=== PATIENT | female | born 1950 | race Caucasian/White ===

== ENCOUNTER → 2018-12-06 | Outpatient (CLI) | payer MEDICARE ==
[~2018-12-06] MED LIST: ALEN70 PO; ANAS1 PO; ATOR40TA PO; Aspir 8181 MG PO; Buspirone HCl30 MG PO; CALCIUM 1,0001 EACH PO; EUTHYROX75 MCG PO; FLUOXETINE HCL60 MG PO; Humalog100 UNIT/1 SC; INSULANPEN SC; LAMO100 PO; LISI5 PO; MAGNESIUM OXID500 MG PO; Mirtazapine45 M1 PO; VITAMIN D325 GM PO
[2018-12-06 18:03] LABS: Creatinine, Urine Random 48.2 mg/dL (27.00-270.00)
[2018-12-06 18:05] LABS: Microalb/Creat Ratio UR, Rand 16.971 mg/g (0.000-30.000); Microalbumin, Random Urine 8.18 mg/L (0.000-20.000)
== END ==
LOC: LAB SHORT 12:04 → LAB SRC 12:04
PROVIDERS: Nurse Practitioner Family
DX: E10.65 Type 1 diabetes mellitus with hyperglycemia (principal)
CPT/HCPCS: 82043; 82570

== ENCOUNTER 2018-12-11 08:04 | Day surgery (SDC) | payer MEDICARE ==
[~2018-12-11] VITALS: Ht 170.2 cm; Wt 124.6 kg
[~2018-12-11 08:04] MED LIST changes: -LISI5 PO
[2018-12-11] MEDS ORDERED: LISI5 PO (09:00)
--- NOTE | 2018-12-11 09:04 | NUR ---
12/11/18 0904 Jacinda Lyle 1ST IV ATTEMPT IN RFA UNSUCCESSFUL, STARTED BY DILLAN PILLAI 2ND IV ATTEMPT IN RFA UNSUCCESSFUL, STARTED BY DILLAN PILLAI 3RD IV ATTEMPT IN RFA SUCCESSFUL, 20G IV PLACED, STARTED BY DILLAN PILLAI
== END 2018-12-11 23:59 | disposition home or self-care (01) ==
LOC: ORSCSDS 08:04
PROVIDERS: Internal Medicine Gastroenterology
PROC: 0DBN8ZX Excision of Sigmoid Colon, Via Natural or Artificial Opening Endoscopic, Diagnostic (ICD-10-PCS; principal; 2018-12-11 09:15)
DX: K92.1 Melena (principal); D12.5 Benign neoplasm of sigmoid colon; K64.8 Other hemorrhoids; Z80.0 Family history of malignant neoplasm of digestive organs; E10.8 Type 1 diabetes mellitus with unspecified complications; Z79.4 Long term (current) use of insulin; Z87.891 Personal history of nicotine dependence; Z79.82 Long term (current) use of aspirin; Z79.899 Other long term (current) drug therapy
CPT/HCPCS: 82947; 88305; J2704; J7120

== ENCOUNTER → 2018-12-25 | Outpatient (CLI) | payer MEDICARE ==
[~2018-12-25] MED LIST changes: +LISI5 PO
== END | disposition home or self-care (01) ==
LOC: LAB SHORT 10:15 → LAB SRC 10:15
DX: R31.9 Hematuria, unspecified (principal)
CPT/HCPCS: 87086

== ENCOUNTER 2019-06-03 12:51 | Inpatient (IN) | payer MEDICARE ==
[~2019-06-03] VITALS: Ht 170.2 cm; Wt 53.3 kg
[~2019-06-03 12:51] MED LIST changes: -ALEN70 PO; -ANAS1 PO; -ATOR40TA PO; -Aspir 8181 MG PO; -Buspirone HCl30 MG PO; -CALCIUM 1,0001 EACH PO; -EUTHYROX75 MCG PO; -FLUOXETINE HCL60 MG PO; -Humalog100 UNIT/1 SC; -INSULANPEN SC; -LISI5 PO; -MAGNESIUM OXID500 MG PO; -Mirtazapine45 M1 PO; -VITAMIN D325 GM PO
[2019-06-03 13:32] LABS: BASOPHILS ABSOLUTE AUTO 0.04 K/mm3 (0.00-0.23); BASOPHILS PERCENT AUTO 0 % (0-2); EOSINOPHILS PERCENT AUTO 0 % (0-6); Hematocrit 39.5 % (33.0-51.0); Hemoglobin 12.7 g/dL (11.5-16.0); IMMATURE GRAN ABSOLUTE AUTO 0.17 K/mm3 (0.00-0.10); IMMATURE GRAN PERCENT AUTO 2 % (0-1); LYMPHOCYTES ABSOLUTE AUTO 0.46 K/mm3 (0.84-5.20); LYMPHOCYTES PERCENT AUTO 4 % (21-46); MONOCYTES ABSOLUTE AUTO 0.47 K/mm3 (0.16-1.47); MONOCYTES PERCENT AUTO 4 % (4-13); Mean Corpuscular HGB 30.5 pg (26.0-34.0); Mean Corpuscular HGB Conc 32.2 g/dL (31.5-36.5); Mean Corpuscular Volume 95 fL (80-100); NEUTROPHILS ABSOLUTE AUTO 10.16 K/mm3 (1.96-9.15); NEUTROPHILS PERCENT AUTO 90 % (41-73); Platelet Count 182 K/mm3 (150-400); RDW Coefficient Variation 13.4 % (11.7-14.2); RDW Standard Deviation 47.2 fL (35.1-46.3); Red Blood Cell Count 4.17 M/mm3 (3.80-5.20)
[2019-06-03 13:46] LABS: Alanine Aminotransfer (ALT/SGP 23 U/L (12-78); Albumin, Blood 4.1 g/dL (3.4-5.0); Albumin/Globulin Ratio 1.3 (0.8-1.8); Alk Phos 128 U/L (50-136); Anion Gap 20 mmol/L (6-16); Aspartate Aminotrans (AST/SGOT 27 U/L (12-37); Bilirubin, Total 0.9 mg/dL (0.1-1.0); Blood Urea Nitrogen 31 mg/dL (8-24); CO2, Blood 17 mmol/L (21-32); Calcium, Blood 9.5 mg/dL (8.5-10.1); Chloride, Blood 95 mmol/L (98-108); Creatinine, Blood 0.94 mg/dL (0.40-1.00); Globulin, Blood 3.2 g/dL (2.2-4.0); Glomerular Filtration Rate >60 (60-); Glucose, Blood 514 mg/dL (70-99); Potassium, Blood 4.2 mmol/L (3.5-5.5); Sodium, Blood 132 mmol/L (136-145); Total Protein, Blood 7.3 g/dL (6.4-8.2)
[2019-06-03] MEDS ORDERED: INSULANPEN SC ×2 (14:04→14:05)
[2019-06-03] MEDS ORDERED: Buspirone HCl30 MG PO (14:04)
[2019-06-03] MEDS ORDERED: EUTHYROX125 MCG PO (14:04)
[2019-06-03] MEDS ORDERED: Humalog100 UNIT/1 SC (14:06)
[2019-06-03] MEDS ORDERED: ATOR40TA PO (14:08)
[2019-06-03] MEDS ORDERED: ANAS1 PO (14:11)
[2019-06-03] MEDS ORDERED: ALEN70 PO (14:11)
[2019-06-03] MEDS ORDERED: Aspir 8181 MG PO (14:11)
[2019-06-03] MEDS ORDERED: Lisinopril2.5 MG PO (14:11)
[2019-06-03] MEDS ORDERED: CALCIUM 1,0001 EACH PO (14:13)
[2019-06-03] MEDS ORDERED: VITAMIN D325 MCG PO (14:13)
[2019-06-03] MEDS ORDERED: MAGNESIUM OXID500 MG PO (14:13)
[2019-06-03 14:40] LABS: Source, Urine Clean Catch
[2019-06-03] MEDS ORDERED: MIRT15 PO (14:43)
[2019-06-03] MEDS ORDERED: FLUOXETINE HCL60 MG PO (14:43)
[2019-06-03 14:44] LABS: Bilirubin, Urine Neg (Neg); Blood, Urine 1+ (Neg); Glucose Qualitative, Urine 4+ (Neg); Ketones, Urine 4+ (Neg); Leukocyte Esterase, Urine Neg (Neg); Nitrite, Urine Neg (Neg); Protein, Urine Neg (Neg); Specific Gravity, Urine 1.015 (1.003-1.022); Urobilinogen, Urine NORM (Normal)
[2019-06-03 15:02] LABS: Appearance, Urine Clear (Clear); Color, Urine Pale Yellow (P-Yellow)
[2019-06-03 15:03] LABS: Bacteria Few /hpf; Squamous Epithelial Cells Not Seen /hpf (Few); White Blood Cells, Urine 0-2 /hpf (0-5)
[2019-06-03 18:00] LABS: Anion Gap 8 mmol/L (6-16); Blood Urea Nitrogen 25 mg/dL (8-24); CO2, Blood 20 mmol/L (21-32); Calcium, Blood 8.2 mg/dL (8.5-10.1); Chloride, Blood 106 mmol/L (98-108); Glomerular Filtration Rate >60 (60-); Glucose, Blood 172 mg/dL (70-99); Potassium, Blood 3.6 mmol/L (3.5-5.5); Sodium, Blood 134 mmol/L (136-145)
[2019-06-03 21:12] LABS: Anion Gap 7 mmol/L (6-16); Blood Urea Nitrogen 25 mg/dL (8-24); Bun/Creatinine Ratio 30.5 (12.0-20.0); CO2, Blood 26 mmol/L (21-32); Calcium, Blood 8.3 mg/dL (8.5-10.1); Chloride, Blood 102 mmol/L (98-108); Creatinine, Blood 0.82 mg/dL (0.40-1.00); Glomerular Filtration Rate >60 (60-); Glucose, Blood 236 mg/dL (70-99); Potassium, Blood 3.9 mmol/L (3.5-5.5); Sodium, Blood 135 mmol/L (136-145)
--- NOTE | 2019-06-03 21:12 | NUR ---
RECEIVED HAND OFF FROM DILLAN EVANS IN ER. TRANSPORTED TO ROOM VIA WHEELCHAIR. TRANSFERED SELF TO BED WITH STANDBY ASSIST, TOLERATED WELL. AAO X3, FIGUEROA, VSS, NAD NOTED, FOLLOWS ALL COMMANDS. ORIENTED TO ROOM, CALL SYSTEM, AND POC, VOICES UNDERSTANDING. TELE PER MD ORDERS, NSR AT 75. RIGHT WRIST 20G FIELD START PIV IS PATENT, FLUSHING WITH EASE WHILE INFUSING. D5LR AT 125ML/HR. ABDOMEN SOFT AND NONDISTENDED. BOWEL SOUNDS PRESENT IN ALL QUADS. CONTINENT OF BOWEL AND BLADDER, AMBULATES TO BATHROOM. SCD'S TO BLE PER ORDERS. CBG'S ORDERED Q 2HRS X2, IF STABLE THEN CHANGE TO Q AC. HS MEDS GIVEN PER ORDERS. DENIES FURTHER NEEDS OR WANTS AT THIS TIME. SAFETY MEASURES IN PLACE. ADMISSION ASSESSMENT IN PROGRESS. WILL CONTINUE TO MONITOR.
[2019-06-04 05:04] LABS: BASOPHILS ABSOLUTE AUTO 0.03 K/mm3 (0.00-0.23); BASOPHILS PERCENT AUTO 0 % (0-2); EOSINOPHILS ABSOLUTE AUTO 0.01 K/mm3 (0.00-0.68); EOSINOPHILS PERCENT AUTO 0 % (0-6); Hematocrit 36.8 % (33.0-51.0); Hemoglobin 11.9 g/dL (11.5-16.0); IMMATURE GRAN ABSOLUTE AUTO 0.08 K/mm3 (0.00-0.10); IMMATURE GRAN PERCENT AUTO 1 % (0-1); LYMPHOCYTES PERCENT AUTO 13 % (21-46); MONOCYTES PERCENT AUTO 11 % (4-13); Mean Corpuscular HGB 30.5 pg (26.0-34.0); Mean Corpuscular HGB Conc 32.3 g/dL (31.5-36.5); Mean Corpuscular Volume 94 fL (80-100); NEUTROPHILS ABSOLUTE AUTO 7.35 K/mm3 (1.96-9.15); NEUTROPHILS PERCENT AUTO 75 % (41-73); Platelet Count 151 K/mm3 (150-400); RDW Coefficient Variation 13.5 % (11.7-14.2); RDW Standard Deviation 46.8 fL (35.1-46.3); White Blood Cell Count 9.87 K/mm3 (4.00-11.30)
--- NOTE | 2019-06-04 05:27 | NUR ---
SHIFT SUMMARY RESTING WITH EASE AT THIS TIME. RESPIRATIONS EVEN AND UNLABORED ON RA. HAS NO C/O PAIN THIS SHIFT. CONTINENT OF BOWEL AND BLADDER, AMBULATES TO BATHROOM. RIGHT WRIST PIV IS PATENT, FLUSIHING WITH EASE WHILE INFUSING D5LR AT 125ML/HR. DENIES FURTHER NEEDS OR WANTS AT THIS TIME. SAFETY MEASURES IN PLACE. WILL GIVE HAND OFF TO ONCOMING SHIFT USING SBAR.
[2019-06-04 05:28] LABS: Alanine Aminotransfer (ALT/SGP 16 U/L (12-78); Albumin/Globulin Ratio 1.1 (0.8-1.8); Alk Phos 82 U/L (50-136); Anion Gap 3 mmol/L (6-16); Aspartate Aminotrans (AST/SGOT 20 U/L (12-37); Bilirubin, Total 0.6 mg/dL (0.1-1.0); Blood Urea Nitrogen 23 mg/dL (8-24); Bun/Creatinine Ratio 28.7 (12.0-20.0); CO2, Blood 28 mmol/L (21-32); Calcium, Blood 8.7 mg/dL (8.5-10.1); Chloride, Blood 104 mmol/L (98-108); Globulin, Blood 2.7 g/dL (2.2-4.0); Glomerular Filtration Rate >60 (60-); Glucose, Blood 329 mg/dL (70-99); Potassium, Blood 3.7 mmol/L (3.5-5.5); Sodium, Blood 135 mmol/L (136-145); Total Protein, Blood 5.7 g/dL (6.4-8.2)
--- NOTE | 2019-06-04 19:24 | NUR ---
summary PATIENT REPORTS SLIGHT FRONTAL HEADACHE BUT DECLINES OFFER OF PAIN MEDS OR ICE. PT DECLINED LOVENOX INJECTION=PT WAS VERBALLY EDUCATED ON DVT PREVENTION AND AGAIN DECLINES LOVENOX- STATES SHE HAS BEEN SITTING IN CHAIR AND WALKING IN ROOM. SPOKE WITH DR RUSSO THROUGHOUT SHIFT REGARDING PATIENTS BLOOD SUGAR AND NEW ORDERS RECEIVED
--- NOTE | 2019-06-05 08:00 | NUR ---
SHIFT SUMMARY: SHRADDHA RESTED COMFORTABLY FOR SEVERAL HOURS DURING THE NIGHT. HER HS BLOOD SUGAR WAS 100. SHE DID HAVE A HIGH PROTEIN SNACK AT HS. A&OX4. SHE IS TOLERATING PO INTAKE WELL. SHE IS INDEPENDENT IN THE ROOM. SHE IS HOPING TO GO HOME TODAY. SHE IS LYING COMFORTABLY IN BED WITH HER CALL LIGHT IN REACH. REPORT TO DAY SHIFT RN.
--- NOTE | 2019-06-06 05:42 | NUR ---
SHIFT SUMMARY: SHRADDHA RESTED COMFORTABLY THE MAJORITY OF THE SHIFT. BP ELEVATED, READINGS TAKEN IN BOTH ARMS WITH UNEQUAL RESULTS. A&OX4. INDEPENDENT IN THE ROOM. IV SALINE LOCKED. SHE REPORTS THAT SHE USUALLY HAS A MONITOR BUT THAT THE TRANSMITTER IS FAULTY AND MEDICARE WILL NOT COVER A NEW ONE UNTIL JULY. SHE STATES THAT SHE THINKS THAT IS THE REASON HER SUGARS BECAME OUT OF CONTROL. SHE DOES HAVE A FINGERSTICK METHOD TO CHECK HER SUGARS. SHE IS ANXIOUS TO GO HOME. SHE IS LYING COMFORTABLY IN BED WITH HER CALL LIGHT IN REACH. WILL REPORT TO DAY SHIFT RN.
[2019-06-06] MEDS ORDERED: BASAGLAR K100 UNIT/1 SC (10:54)
[2019-06-06] MEDS ORDERED: Humalog Mi100 UNIT/4 SC (10:57)
[2019-06-06] MEDS ORDERED: Prinivil10 MG PO (10:58)
--- NOTE | 2019-06-06 11:29 | NUR ---
1120 DISCHARGED TO HOME
== END 2019-06-06 11:30 | disposition home or self-care (01) | DRG 639 ==
LOC: ER 12:51 → ERHOLD 12:53 → SURS 20:00
PROVIDERS: Emergency Medicine; Nurse Practitioner Acute Care; Physician Assistant; ADMIT Internal Medicine
DX: E11.10 Type 2 diabetes mellitus with ketoacidosis without coma (principal); F41.1 Generalized anxiety disorder; E03.9 Hypothyroidism, unspecified; E86.0 Dehydration; E78.5 Hyperlipidemia, unspecified; M81.0 Age-related osteoporosis without current pathological fracture; F32.9 Major depressive disorder, single episode, unspecified; F17.210 Nicotine dependence, cigarettes, uncomplicated; Z85.3 Personal history of malignant neoplasm of breast; Z79.811 Long term (current) use of aromatase inhibitors; Z79.82 Long term (current) use of aspirin; Z79.4 Long term (current) use of insulin; Z79.899 Other long term (current) drug therapy
CPT/HCPCS: 36415; 71045; 80048; 80053; 81001; 82010; 82947; 83735; 85025; 96360; 99285-25; A9270; A9270-GY; J1650; J1815; J2765; J7030; J7120

== ENCOUNTER → 2021-03-01 | Outpatient (CLI) | payer OTHER ==
[~2021-03-01] MED LIST changes: +ALEN70 PO; +ANAS1 PO; +ANASTROZOLE5 GM PO; +ATOR40TA PO; +Aspir 8181 MG PO; +Aspirin EC81 MG PO; +BASAGLAR K100 UNIT/1 SC; +Buspirone HCl30 MG PO; +CALCIUM 1,0001 EACH PO; +CALCIUM 600 +1 EAC8 PO; +EUTHYROX125 MCG PO; +FLUOXETINE HCL60 MG PO; +HUMALOG KW100 UNIT/1; +Humalog Mi100 UNIT/4 SC; +Humalog100 UNIT/1 SC; +INSULANPEN SC; +LEVSOD75 PO; +Lisinopril2.5 MG PO; +MAGNESIUM OXID500 MG PO; +MIRT15 PO; +Mirtazapine45 M1 PO; +Prinivil10 MG PO; +Prozac20 MG PO; +VITAMIN D325 MC3 PO; +VITAMIN D325 MCG PO
[2021-03-01 13:45] LABS: BASOPHILS ABSOLUTE AUTO 0.06 K/mm3 (0.00-0.23); BASOPHILS PERCENT AUTO 1 % (0-2); EOSINOPHILS ABSOLUTE AUTO 0.02 K/mm3 (0.00-0.68); EOSINOPHILS PERCENT AUTO 0 % (0-6); Hematocrit 40.2 % (33.0-51.0); Hemoglobin 13.5 g/dL (11.5-16.0); IMMATURE GRAN ABSOLUTE AUTO 0.04 K/mm3 (0.00-0.10); IMMATURE GRAN PERCENT AUTO 1 % (0-1); LYMPHOCYTES ABSOLUTE AUTO 1.45 K/mm3 (0.84-5.20); LYMPHOCYTES PERCENT AUTO 18 % (21-46); MONOCYTES ABSOLUTE AUTO 0.74 K/mm3 (0.16-1.47); MONOCYTES PERCENT AUTO 9 % (4-13); Mean Corpuscular HGB 33.8 pg (26.0-34.0); Mean Corpuscular HGB Conc 33.6 g/dL (31.5-36.5); Mean Corpuscular Volume 101 fL (80-100); Mean Platelet Volume 10.8 fL (9.1-12.4); NEUTROPHILS PERCENT AUTO 72 % (41-73); Platelet Count 206 K/mm3 (150-400); RDW Coefficient Variation 12.1 % (11.7-14.2); RDW Standard Deviation 45.4 fL (35.1-46.3); White Blood Cell Count 8.21 K/mm3 (4.00-11.30)
[2021-03-01 14:10] LABS: Alanine Aminotransfer (ALT/SGP 61 U/L (12-78); Albumin, Blood 3.2 g/dL (3.4-5.0); Albumin/Globulin Ratio 0.9 (0.8-1.8); Alk Phos 151 U/L (50-136); Anion Gap 13 mmol/L (6-16); Aspartate Aminotrans (AST/SGOT 102 U/L (12-37); Bilirubin, Total 0.6 mg/dL (0.1-1.0); Blood Urea Nitrogen 5 mg/dL (8-24); Bun/Creatinine Ratio 6.8 (12.0-20.0); CO2, Blood 21 mmol/L (21-32); Calcium, Blood 9.5 mg/dL (8.5-10.1); Chloride, Blood 101 mmol/L (98-108); Creatinine, Blood 0.74 mg/dL (0.40-1.00); Free Thyroxine 0.94 ng/dL (0.70-1.60); Globulin, Blood 3.6 g/dL (2.2-4.0); Glomerular Filtration Rate >60 (60-); Glucose, Blood 156 mg/dL (70-99); Potassium, Blood 3.8 mmol/L (3.5-5.5); Sodium, Blood 135 mmol/L (136-145); Total Protein, Blood 6.8 g/dL (6.4-8.2)
== END ==
LOC: LAB 10:14 → LAB SHORT 10:14
PROVIDERS: Family Medicine
DX: E03.9 Hypothyroidism, unspecified (principal); E11.9 Type 2 diabetes mellitus without complications; K52.9 Noninfective gastroenteritis and colitis, unspecified
CPT/HCPCS: 80053; 83036; 84439; 84443; 84481; 85025

== ENCOUNTER → 2021-08-18 | Outpatient (CLI) | payer OTHER | END | disposition home or self-care (01) | LOC: LAB SHORT 11:35 | DX: E10.9 Type 1 diabetes mellitus without complications (principal) | CPT/HCPCS: 82043 ==

== ENCOUNTER 2022-05-09 10:33 | Inpatient (IN) | payer OTHER ==
[~2022-05-09] VITALS: Ht 152.4 cm; Wt 50.0 kg
[~2022-05-09 10:33] MED LIST changes: +MIRALAX17 GM PO; +PAIN RELIEF1 EACH TOP; +SEMGLEE (Y100 UNIT/2 SC; +TRAM50 PO
[2022-05-09 10:53] LABS: BASOPHILS ABSOLUTE AUTO 0.08 K/mm3 (0.00-0.23); BASOPHILS PERCENT AUTO 0 % (0-2); EOSINOPHILS ABSOLUTE AUTO 0.01 K/mm3 (0.00-0.68); EOSINOPHILS PERCENT AUTO 0 % (0-6); Hematocrit 36.9 % (33.0-51.0); Hemoglobin 12.3 g/dL (11.5-16.0); IMMATURE GRAN ABSOLUTE AUTO 0.47 K/mm3 (0.00-0.10); IMMATURE GRAN PERCENT AUTO 2 % (0-1); LYMPHOCYTES ABSOLUTE AUTO 0.57 K/mm3 (0.84-5.20); LYMPHOCYTES PERCENT AUTO 3 % (21-46); MONOCYTES ABSOLUTE AUTO 1.27 K/mm3 (0.16-1.47); MONOCYTES PERCENT AUTO 6 % (4-13); Mean Corpuscular HGB 31.1 pg (26.0-34.0); Mean Corpuscular HGB Conc 33.3 g/dL (31.5-36.5); Mean Corpuscular Volume 93 fL (80-100); Mean Platelet Volume 9.5 fL (9.1-12.4); NEUTROPHILS ABSOLUTE AUTO 20.01 K/mm3 (1.96-9.15); NEUTROPHILS PERCENT AUTO 89 % (41-73); Platelet Count 190 K/mm3 (150-400); RDW Coefficient Variation 12.8 % (11.7-14.2); RDW Standard Deviation 44.2 fL (35.1-46.3); Red Blood Cell Count 3.96 M/mm3 (3.80-5.20); White Blood Cell Count 22.41 K/mm3 (4.00-11.30)
[2022-05-09 11:13] LABS: Albumin, Blood 3.6 g/dL (3.4-5.0); Bun/Creatinine Ratio 27.4 (12.0-20.0); Calcium, Blood 9.1 mg/dL (8.5-10.1); Creatinine, Blood 0.77 mg/dL (0.40-1.00); Globulin, Blood 3.6 g/dL (2.2-4.0); Potassium, Blood 4.2 mmol/L (3.5-5.5); Total Protein, Blood 7.2 g/dL (6.4-8.2)
[2022-05-09 11:19] LABS: Magnesium, Blood 1.7 mg/dL (1.6-2.4)
[2022-05-09 13:49] LABS: Source, Urine Voided
[2022-05-09 14:12] LABS: Appearance, Urine Clear (Clear); Bilirubin, Urine Neg (Neg); Blood, Urine 1+ (Neg); Color, Urine Yellow (P-Yellow); Glucose Qualitative, Urine 4+ (Neg); Ketones, Urine 4+ (Neg); Leukocyte Esterase, Urine Neg (Neg); Nitrite, Urine Neg (Neg); Protein, Urine 2+ (Neg); Specific Gravity, Urine 1.015 (1.003-1.022); Urobilinogen, Urine NORM (Normal)
[2022-05-09 14:33] LABS: White Blood Cells, Urine 0-2 /hpf (0-5)
[2022-05-09 14:35] LABS: Bacteria Rare /hpf; Squamous Epithelial Cells Few /hpf (Few)
--- NOTE | 2022-05-09 18:32 | NUR ---
NEW ER ADMIT Pt has new onset of N/V, WEAKNESS. Last night had GLF, increased weakness today, unable to walk. 2-RN skin check completed, small scab on right knee, no other skin issues found. Bedrest at this time. Pt has N/V, dry heaving. Temp 100.5 on admission, vitals stable. CBG High undetectable, start Glucose/Blood ordered, results pending. MD notified. Patient is NPO until CBG results come back.
[2022-05-09 18:49] LABS: Glucose, Blood 651 mg/dL (70-99)
--- NOTE | 2022-05-09 19:10 | NUR ---
Blood Glucose is 651, reported to Dr. Grey. Orders to given Lantus 20 units Now. CHange Humalog to High SSI ac/hs, and infuse 1L Normal Saline, recheck CBG in 1 hour. Patient warm/flushed, reported feeling unwell, and nausated. Reported plan to oncoming nurse, interventions initiated.
[2022-05-09 21:23] LABS: Glucose, Blood 589 mg/dL (70-99)
[2022-05-10 05:27] LABS: BASOPHILS ABSOLUTE AUTO 0.05 K/mm3 (0.00-0.23); BASOPHILS PERCENT AUTO 0 % (0-2); EOSINOPHILS PERCENT AUTO 0 % (0-6); Hematocrit 32.2 % (33.0-51.0); Hemoglobin 10.7 g/dL (11.5-16.0); IMMATURE GRAN ABSOLUTE AUTO 0.23 K/mm3 (0.00-0.10); IMMATURE GRAN PERCENT AUTO 1 % (0-1); LYMPHOCYTES ABSOLUTE AUTO 1.32 K/mm3 (0.84-5.20); LYMPHOCYTES PERCENT AUTO 7 % (21-46); MONOCYTES ABSOLUTE AUTO 2.07 K/mm3 (0.16-1.47); MONOCYTES PERCENT AUTO 12 % (4-13); Mean Corpuscular HGB 30.7 pg (26.0-34.0); Mean Corpuscular HGB Conc 33.2 g/dL (31.5-36.5); Mean Corpuscular Volume 93 fL (80-100); Mean Platelet Volume 9.6 fL (9.1-12.4); NEUTROPHILS ABSOLUTE AUTO 14.26 K/mm3 (1.96-9.15); NEUTROPHILS PERCENT AUTO 80 % (41-73); Platelet Count 183 K/mm3 (150-400); RDW Coefficient Variation 13.2 % (11.7-14.2); RDW Standard Deviation 44.3 fL (35.1-46.3); Red Blood Cell Count 3.48 M/mm3 (3.80-5.20); White Blood Cell Count 17.93 K/mm3 (4.00-11.30)
--- NOTE | 2022-05-10 05:38 | NUR ---
SUMMARY: PATIENT GLUCOSE ELEVATED AT 651 START OF SHIFT. ORDERS RECIEVED FOR NS 1L AND INSULIN. MEDS GIVEN AND SUGAR RECHECKED ONE HOUR LATER. GLUCOSE STILL ELEVATED 589. ADDITIONAL 8U LISPRO GIVEN AND GLUCOSE CHECKED 2 HOURS LATER CAME DOWN TO 295. GLUCOSE CHECKED ONE HOUR LATER 275. IV FLUIDS RUNNING. NAUSEA MEDS GIVEN PRN. PATIENT HAS FRACTURES INCLUDING HIP AND RIBS FROM FALLS. PURE WIC IN PLACE CURRENTLY. CALL LIGHT IN REACH, BED ALARM ON. PATIENT VSS. AOX4.
[2022-05-10 05:42] LABS: Albumin/Globulin Ratio 0.9 (0.8-1.8); Bilirubin, Total 0.7 mg/dL (0.1-1.0); Bun/Creatinine Ratio 29.8 (12.0-20.0); Calcium, Blood 8.6 mg/dL (8.5-10.1); Creatinine, Blood 0.91 mg/dL (0.40-1.00); Globulin, Blood 3.2 g/dL (2.2-4.0); Magnesium, Blood 2.3 mg/dL (1.6-2.4); Potassium, Blood 3.8 mmol/L (3.5-5.5); Total Protein, Blood 6.2 g/dL (6.4-8.2)
--- NOTE | 2022-05-10 18:19 | NUR ---
SHIFT SUMMARY-PT AAOX4 THIS SHIFT. PAIN MODERATELY CONTROLLED BY FENTYNAL IV. PT HAS NOT HAD A BM IN 48 HRS.
--- NOTE | 2022-05-11 05:35 | NUR ---
SUMMARY: PATIENT AOX4. PURE WIC IN PLACE PATIENT IS VERY WEAK AND IN PAIN FROM FRACTURES. PAIN MEDS AND ANTIEMETICS GIVEN PER EMAR. IV ABX GIVEN. BP ELEVATED THIS AM. NOTIFIED MD. STOPPED FLUIDS PATIENT IS TOLERATING CLEAR LIQUID WITH VERY GOOOD URINE OUTPUT AND GAVE DAILY BP MED EARLY. PLAN FOR PATIENT TO DC TO [facility] ONCE MEDICALLY CLEARED.
[2022-05-11 06:09] LABS: BASOPHILS ABSOLUTE AUTO 0.04 K/mm3 (0.00-0.23); BASOPHILS PERCENT AUTO 0 % (0-2); EOSINOPHILS ABSOLUTE AUTO 0.04 K/mm3 (0.00-0.68); EOSINOPHILS PERCENT AUTO 0 % (0-6); Hematocrit 33.4 % (33.0-51.0); Hemoglobin 11.4 g/dL (11.5-16.0); IMMATURE GRAN ABSOLUTE AUTO 0.13 K/mm3 (0.00-0.10); IMMATURE GRAN PERCENT AUTO 1 % (0-1); LYMPHOCYTES ABSOLUTE AUTO 1.14 K/mm3 (0.84-5.20); LYMPHOCYTES PERCENT AUTO 12 % (21-46); MONOCYTES PERCENT AUTO 10 % (4-13); Mean Corpuscular HGB 31.1 pg (26.0-34.0); Mean Corpuscular HGB Conc 34.1 g/dL (31.5-36.5); Mean Corpuscular Volume 91 fL (80-100); Mean Platelet Volume 9.7 fL (9.1-12.4); NEUTROPHILS ABSOLUTE AUTO 7.24 K/mm3 (1.96-9.15); NEUTROPHILS PERCENT AUTO 76 % (41-73); Platelet Count 121 K/mm3 (150-400); RDW Coefficient Variation 13.1 % (11.7-14.2); RDW Standard Deviation 43.6 fL (35.1-46.3); Red Blood Cell Count 3.67 M/mm3 (3.80-5.20); White Blood Cell Count 9.49 K/mm3 (4.00-11.30)
[2022-05-11 06:15] LABS: Bun/Creatinine Ratio 17.4 (12.0-20.0); Calcium, Blood 8.8 mg/dL (8.5-10.1); Creatinine, Blood 0.58 mg/dL (0.40-1.00); Potassium, Blood 3.3 mmol/L (3.5-5.5)
[2022-05-11 11:40] LABS: Influenza A, PCR NEGATIVE (NEGATIVE); Influenza B, PCR NEGATIVE (NEGATIVE); Resp Syncytial Virus, PCR NEGATIVE (NEGATIVE); SARS-Cov-2 (COVID-19) PCR, MMC NEGATIVE (NEGATIVE)
[2022-05-11] MEDS ORDERED: PROM25 PO (12:06)
[2022-05-11] MEDS ORDERED: METR500 PO (12:06)
--- NOTE | 2022-05-11 17:43 | NUR ---
PROVIDER NOTIFIED OF 360 CBG. ORDERED 15 U REGULAR PER THE SLIDING SCALE. PROVIDER STATED SHE WILL ADJUST HER LONG ACTING INSULIN.
--- NOTE | 2022-05-11 18:17 | NUR ---
SHIFT SUMMARY PT AOX4. POTENTIALLY TRANSPORTING TO [facility] SOON. PT AMBULATING TO THE BS COMMODE WITH A FWW AND SBA. IV HAS BEEN REMOVED AND PAPERWORK FAXED TO [facility]. WILL REPORT TO ONCOMING NURSE.
--- NOTE | 2022-05-11 18:36 | NUR ---
SPOKE WITH JOSE RN, AT [facility] AND GAVE HIM REPORT ABOUT PT. TRANSPORT HAS STILL YET TO ARRIVE TO TRANSPORT HER. WILL REPORT TO ONCOMING NURSE.
== END 2022-05-11 19:50 | DRG 391 ==
LOC: ER 10:33 → MEDS 15:37
PROVIDERS: Emergency Medicine; Internal Medicine; Nurse Practitioner Acute Care; ADMIT Internal Medicine
DX: K52.9 Noninfective gastroenteritis and colitis, unspecified (principal); S72.114A Nondisplaced fracture of greater trochanter of right femur, initial encounter for closed fracture; E87.20 Acidosis, unspecified; E87.1 Hypo-osmolality and hyponatremia; F41.1 Generalized anxiety disorder; E03.9 Hypothyroidism, unspecified; R91.1 Solitary pulmonary nodule; F32.A Depression, unspecified; R29.6 Repeated falls; I10 Essential (primary) hypertension; M81.0 Age-related osteoporosis without current pathological fracture; G40.909 Epilepsy, unspecified, not intractable, without status epilepticus; E78.00 Pure hypercholesterolemia, unspecified; R94.31 Abnormal electrocardiogram [ECG] [EKG]; E86.1 Hypovolemia; E11.65 Type 2 diabetes mellitus with hyperglycemia; F17.210 Nicotine dependence, cigarettes, uncomplicated; E86.0 Dehydration; Z20.822 Contact with and (suspected) exposure to COVID-19; W19.XXXA Unspecified fall, initial encounter; Z90.49 Acquired absence of other specified parts of digestive tract; Z96.619 Presence of unspecified artificial shoulder joint; Z90.710 Acquired absence of both cervix and uterus; Z98.890 Other specified postprocedural states; Z98.49 Cataract extraction status, unspecified eye; Z90.12 Acquired absence of left breast and nipple; Z88.2 Allergy status to sulfonamides; Z88.1 Allergy status to other antibiotic agents; Z79.4 Long term (current) use of insulin; Z79.811 Long term (current) use of aromatase inhibitors; Z79.02 Long term (current) use of antithrombotics/antiplatelets; Z79.891 Long term (current) use of opiate analgesic; Z79.899 Other long term (current) drug therapy; Z79.82 Long term (current) use of aspirin; Z85.3 Personal history of malignant neoplasm of breast; Z71.6 Tobacco abuse counseling
CPT/HCPCS: 0241U; 36415; 71045; 73502; 74177; 80048; 80053; 81001; 82947; 83605; 83690; 83735; 84443; 84484; 85025; 93005; 93010; 96361; 96365-59; 96375; 97110; 97162; 97530; 99285-25; A9270; J0295; J1650; J1815; J1885; J2405; J2543; J2550; J2765; J3010; J3475; J7030; J7120; Q9967

== ENCOUNTER 2023-07-25 14:54 | Emergency (ER) | payer OTHER ==
[~2023-07-25] VITALS: Ht 170.2 cm; Wt 43.5 kg
[~2023-07-25 14:54] MED LIST changes: +METR500 PO; +PROM25 PO
[2023-07-25] MEDS ORDERED: OxyCODONE HCL 5 MG TAB PO ONE (15:55)
[2023-07-25] MEDS ORDERED: Ketorolac Tromethamine 30mg Vial IV ONE (15:55)
[2023-07-25] MEDS ORDERED: Lidocaine 4% 1 Patch TOP ONE (15:55)
[2023-07-25] MEDS ORDERED: NS 1,000 ML IV SCH (17:20)
[2023-07-25] MEDS ORDERED: Ondansetron HCl 2 MG / ML 2ML Vial IV ONE (17:20)
[2023-07-25] MEDS ORDERED: FentaNYL Citrate 50 MCG/ML 2 ML Injection IV ONE (17:20)
[2023-07-25] MEDS ORDERED: ONDA4ODT MM (17:27)
[2023-07-25] MEDS ORDERED: OXYC5 PO (17:27)
[2023-07-25] MEDS ORDERED: RX Prepack 2 Tabs Ondansetron ODT 4MG UD ONE (17:30)
[2023-07-25] MEDS ORDERED: RX Prepack 6 Tabs Oxycodone 5mg UD ONE (17:30)
[2023-07-25 19:21] VITALS: BP 121/71
== END 2023-07-25 19:59 ==
LOC: ER 14:54
DX: S22.42XA Multiple fractures of ribs, left side, initial encounter for closed fracture (principal); E86.0 Dehydration; R11.0 Nausea; F17.200 Nicotine dependence, unspecified, uncomplicated; E11.9 Type 2 diabetes mellitus without complications; I10 Essential (primary) hypertension; E78.00 Pure hypercholesterolemia, unspecified; Z79.82 Long term (current) use of aspirin; Z79.4 Long term (current) use of insulin; Z79.899 Other long term (current) drug therapy; Z88.1 Allergy status to other antibiotic agents; Z88.2 Allergy status to sulfonamides; W18.39XA Other fall on same level, initial encounter; Y92.009 Unspecified place in unspecified non-institutional (private) residence as the place of occurrence of the external cause
CPT/HCPCS: 71250; 93005; 93010; 96374; 96375; 99284-25; A9270; J1885; J2405; J3010; J7030

== ENCOUNTER 2023-08-05 08:37 | Inpatient (IN) | payer OTHER ==
[~2023-08-05] VITALS: Ht 170.2 cm; Wt 45.6 kg
[~2023-08-05 08:37] MED LIST changes: +ONDA4ODT MM; +OXYC5 PO
[2023-08-05] MEDS ORDERED: NS 1,000 ML IV SCH ×2 (09:45→14:00)
[2023-08-05] MEDS ORDERED: Ketorolac Tromethamine 30mg Vial IV ONE (09:45)
[2023-08-05] MEDS ORDERED: HYDROmorphone HCl/Pf 1MG SYR IV ONE ×2 (09:45→12:40)
[2023-08-05 09:48] LABS: BASOPHILS ABSOLUTE AUTO 0.05 K/mm3 (0.00-0.23); BASOPHILS PERCENT AUTO 0 % (0-2); EOSINOPHILS PERCENT AUTO 0 % (0-6); Hematocrit 33.9 % (33.0-51.0); Hemoglobin 11.4 g/dL (11.5-16.0); IMMATURE GRAN ABSOLUTE AUTO 0.22 K/mm3 (0.00-0.10); IMMATURE GRAN PERCENT AUTO 2 % (0-1); LYMPHOCYTES ABSOLUTE AUTO 1.16 K/mm3 (0.84-5.20); LYMPHOCYTES PERCENT AUTO 9 % (21-46); MONOCYTES PERCENT AUTO 6 % (4-13); Mean Corpuscular HGB 32.4 pg (26.0-34.0); Mean Corpuscular HGB Conc 33.6 g/dL (31.5-36.5); Mean Corpuscular Volume 96 fL (80-100); Mean Platelet Volume 9.6 fL (9.1-12.4); NEUTROPHILS ABSOLUTE AUTO 10.22 K/mm3 (1.96-9.15); NEUTROPHILS PERCENT AUTO 82 % (41-73); Platelet Count 236 K/mm3 (150-400); RDW Coefficient Variation 15.4 % (11.7-14.2); Red Blood Cell Count 3.52 M/mm3 (3.80-5.20); White Blood Cell Count 12.45 K/mm3 (4.00-11.30)
[2023-08-05] MEDS ORDERED: Ondansetron HCl 2 MG / ML 2ML Vial IV ONE (09:50)
[2023-08-05 10:04] LABS: Bilirubin, Total 0.6 mg/dL (0.1-1.0); Bun/Creatinine Ratio 15.8 (12.0-20.0); Calcium, Blood 8.9 mg/dL (8.5-10.1); Creatinine, Blood 1.01 mg/dL (0.40-1.00); Globulin, Blood 3.1 g/dL (2.2-4.0); Potassium, Blood 3.6 mmol/L (3.5-5.5); Total Protein, Blood 6.1 g/dL (6.4-8.2)
[2023-08-05 10:10] LABS: Source, Urine Straight Cath
[2023-08-05 10:13] LABS: Appearance, Urine Clear (Clear); Bilirubin, Urine Neg (Neg); Blood, Urine Neg (Neg); Color, Urine Yellow (P-Yellow); Glucose Qualitative, Urine Neg (Neg); Ketones, Urine 3+ (Neg); Leukocyte Esterase, Urine Neg (Neg); Nitrite, Urine Neg (Neg); Protein, Urine 1+ (Neg); Specific Gravity, Urine 1.015 (1.003-1.022); Urobilinogen, Urine NORM (Normal)
[2023-08-05] MEDS ORDERED: Azithromycin 250 MG Tab PO ONE (11:40)
[2023-08-05] MEDS ORDERED: CefTRIAXone Sodium 1,000 MG in NS 100 ML IV ONE (11:40)
[2023-08-05] MEDS ORDERED: Ondansetron HCl 2 MG / ML 2ML Vial IV PRN (12:55)
[2023-08-05] MEDS ORDERED: HYDROcodone 5-APAP 325 TAB PO PRN (13:00)
[2023-08-05] MEDS ORDERED: Promethazine HCl 25 MG Tab PO PRN (13:50)
[2023-08-05] MEDS ORDERED: Alendronate Sodium 70 MG Tablet PO SCH (13:50)
[2023-08-05] MEDS ORDERED: Insulin NPH 100 Unit / ML 10ML Vial SC STA (13:55)
[2023-08-05] MEDS ORDERED: FLUoxetine HCL 20 MG CAP PO SCH (14:00)
[2023-08-05 15:01] VITALS: BP 150/80
--- NOTE | 2023-08-05 15:30 | NUR ---
ASSUMED CARE: PT ARRIVED FROM ED AND TRANSFERRED TO BED VIA SLIDER. SKIN CHECK NOTED LARGE AMOUNTS OF BRUISING TO BACK AND LEFT SIDE OF RIBS AND HIP. HEMATOMA ALSO NOTED. BORDERS DRAWN AND PHOTOS TAKEN. ON RA, STATES SHE IS IN PAIN 8. CALL LIGHT IN REACH. NO OTHER NEEDS AT THIS TIME.
[2023-08-05] MEDS ORDERED: Insulin Human Lispro 100 Units/ML 3ML Syringe SC SCH (16:30)
--- NOTE | 2023-08-05 16:30 | NUR ---
DR RUSSO CAME TO BEDSIDE TO VISUALIZE BRUISING. AWARE OF HEMATOMA AND SWELLING TO LEFT FACE. PT HAS HEATING PAD IN PLACE AND SEEMS TO TOLERATE ACTIVITY AFTER MEDICATED FOR PAIN. NO FURTHER NEEDS AT THIS TIME.
--- NOTE | 2023-08-05 17:26 | NUR ---
SHIFT SUMMARY: PT RESTING IN BED WITH HEATING PLAN IN PLACE. MEDICATED X1 FOR PAIN. STATES SHE FEELS SAFE AT HOME BUT KNOWS SHE HAS BEEN FALLING FREQUENTLY AT HOME. CARE MANAGEMENT CONSULT IN PLACE. NO FURTHER NEEDS AT THIS TIME.
[2023-08-05 20:39] VITALS: BP 123/62
[2023-08-05] MEDS ORDERED: Famotidine 20 MG Tab PO SCH (21:00)
[2023-08-05] MEDS ORDERED: Insulin Glargine-Yfgn 100 Unit/mL 3 ML SYR SC SCH (21:00)
--- NOTE | 2023-08-05 21:26 | NUR ---
Patient blood sugar at HS was 43. Patient was asymptomatic and surprized. Blood sugar 3 hours earlier was 107. Blood sugar came up to 104 30 minutes later after one pudding and two containers apple juice. Will notify hospitalist and await orders
[2023-08-06] MEDS ORDERED: D5W-1/2NS 1,000 ML IV ONE (02:20)
[2023-08-06 02:27] VITALS: BP 130/66
[2023-08-06 05:15] LABS: Hematocrit 34.8 % (33.0-51.0); Hemoglobin 11.5 g/dL (11.5-16.0); Mean Corpuscular HGB 32.1 pg (26.0-34.0); Mean Corpuscular Volume 97 fL (80-100); Mean Platelet Volume 9.2 fL (9.1-12.4); Platelet Count 218 K/mm3 (150-400); RDW Coefficient Variation 15.3 % (11.7-14.2); RDW Standard Deviation 55.4 fL (35.1-46.3); Red Blood Cell Count 3.58 M/mm3 (3.80-5.20); White Blood Cell Count 12.25 K/mm3 (4.00-11.30)
--- NOTE | 2023-08-06 05:37 | NUR ---
Pain controlled with norco and warm blankets overnight. Blood sugars labile ranging from 107 to 32 and back to 104 before starting D5 1/2 NS around 0200. currently awaiting chemistry from lab draw this morning. Patient states she wears a glucose monitor at home, but does not have it here. requested she have someone bring it in if possible so we could check it against our own glucometers. Spoke with patient about how this could possibly be a contributing factor to why she is falling so frequently. Head CT without contrast performed last evening with result posted under imaging with no significant changes noted
[2023-08-06 05:39] LABS: Bun/Creatinine Ratio 14.9 (12.0-20.0); Calcium, Blood 8.5 mg/dL (8.5-10.1); Creatinine, Blood 1.01 mg/dL (0.40-1.00); Potassium, Blood 3.9 mmol/L (3.5-5.5)
[2023-08-06] MEDS ORDERED: Levothyroxine Sodium 0.1 MG Tab PO SCH (06:00)
[2023-08-06 08:10] VITALS: BP 131/84
[2023-08-06] MEDS ORDERED: Heparin Sodium,Porcine 5,000 UNIT/0.5 ML SDV SC SCH (09:00)
[2023-08-06] MEDS ORDERED: Atorvastatin 40 MG Tab PO SCH (09:00)
[2023-08-06] MEDS ORDERED: Cholecalciferol 1000 Unit Tablet (=25MCG) PO SCH (09:00)
[2023-08-06] MEDS ORDERED: Aspirin 81 MG TabEC PO SCH (09:00)
[2023-08-06] MEDS ORDERED: Lisinopril 10 MG Tab PO SCH (09:00)
[2023-08-06] MEDS ORDERED: Polyethylene Glycol 3350 17 gm PO SCH (09:00)
[2023-08-06] MEDS ORDERED: Azithromycin 500 MG in NS 250 ML IV SCH (12:00)
[2023-08-06] MEDS ORDERED: CefTRIAXone Sodium 1,000 MG in NS 100 ML IV SCH (12:00)
[2023-08-06] MEDS ORDERED: NS 250 ML IV PRN (12:15)
[2023-08-06] MEDS ORDERED: FentaNYL Citrate 50 MCG/ML 2 ML Injection IV PRN (13:30)
[2023-08-06] MEDS ORDERED: HYDROcodone 5-APAP 325 TAB PO PRN (13:30)
[2023-08-06] MEDS ORDERED: FLUVOXAMINE MA100 M3 PO (13:49)
[2023-08-06] MEDS ORDERED: ROSUVASTATIN CA40 MG PO (13:49)
[2023-08-06] MEDS ORDERED: TOUJEO SOL300 UNIT/2 SC (13:50)
[2023-08-06] MEDS ORDERED: EUTHYROX50 MC1 PO (13:51)
[2023-08-06] MEDS ORDERED: REMERON30 M9 PO (13:52)
[2023-08-06] MEDS ORDERED: VITAMIN B-1100 M1 PO (13:52)
[2023-08-06] MEDS ORDERED: LOSA50 PO (13:54)
[2023-08-06 15:10] VITALS: BP 116/69
[2023-08-06] MEDS ORDERED: Insulin Human Lispro 100 Units/ML 3ML Syringe SC SCH (16:30)
[2023-08-06] MEDS ORDERED: Thiamine HCl 100 MG Tab PO SCH (17:45)
[2023-08-06] MEDS ORDERED: Multivitamins-Minerals Liquid 15 ML Oral Syringe PO SCH (17:45)
--- NOTE | 2023-08-06 18:31 | NUR ---
SHIFT SUMMARY PT IS PLEASANT AND COOPERATIVE WITH CARE, A&OX4. ON ROOM AIR WITH NO DISTRESS. PAIN HAS BEEN CONTROLLED THROUGHOUT THE DAY WITH EMAR MEDICATIONS. CALLED DR RUSSO TO HAVE BREAKTHROUGH PAIN MEDICATIONS ADDED TO EMAR NORLUPILLO WAS NOT WORKING EARLY THIS AM. BETTER PAIN MANAGEMENT THIS AFTERNOON. USING HEATING PAD FOR PAIN MANAGEMENT WELL. APPETITE HAS BEEN POOR. PT STATES FOOD DOES NOT TASTE GOOD. PT WILL TAKE A BITE AND SPIT FOOD OUT. SHE DID EAT YOGURT AND GLUCERNAA AT BREAKFAST AND LUNCH WITHOUT ISSUES. PHYSICAL THERAPY WORKED WITH PT TODAY, UP TO RECLINER WITH FWW/GB 1 PER ASSIST. PUREWICK USED FOR URINARY INCONTINENCE.
[2023-08-06 19:00] LABS: Magnesium, Blood 2.1 mg/dL (1.6-2.4); Phosphorus, Blood 1.8 mg/dL (2.5-4.9)
[2023-08-06 20:01] VITALS: BP 130/73
[2023-08-07 02:34] VITALS: BP 142/65
[2023-08-07 05:24] LABS: Albumin, Blood 2.7 g/dL (3.4-5.0); Anion Gap 7 mmol/L (3-11); Blood Urea Nitrogen 9 mg/dL (8-24); Bun/Creatinine Ratio 11.8 (12.0-20.0); CO2, Blood 27 mmol/L (21-32); Calcium, Blood 8.8 mg/dL (8.5-10.1); Chloride, Blood 110 mmol/L (98-108); Creatinine, Blood 0.76 mg/dL (0.40-1.00); Glomerular Filtration Rate 84 (60-); Glucose, Blood 87 mg/dL (70-99); Magnesium, Blood 1.9 mg/dL (1.6-2.4); Phosphorus, Blood 2.1 mg/dL (2.5-4.9); Potassium, Blood 3.7 mmol/L (3.5-5.5); Sodium, Blood 140 mmol/L (136-145)
[2023-08-07 07:59] VITALS: BP 153/73
[2023-08-07 15:31] VITALS: BP 143/75
[2023-08-07 20:09] VITALS: BP 147/77
[2023-08-07] MEDS ORDERED: Insulin Glargine-Yfgn 100 Unit/mL 3 ML SYR SC SCH (21:00)
[2023-08-08 03:25] VITALS: BP 161/76
--- NOTE | 2023-08-08 04:50 | NUR ---
SHIFT SUMMARY PATIENT HAD NO ACUTE CHANGES. AXOX 4 AND ONE ASSIST FWW/GB TO BSC. PIV REMAINS INTACT. REPORTED LEFT RIB/SHOULDER PAIN X 3 AND NORCO 2 TAB AND FENTANYL 50 MCG ALTERNATED. PATIENT ABLE TO SLEEP WITH PAIN MANAGEMENT. DENIES CHEST PAIN, SOB, AND N/V. VSS/AFEBRILE. CALL LIGHT IN REACH. BED IN LOWEST POSITION. WILL CONTINUE TO MONITOR UNTIL DAY SHIFT NURSE ASSUMES CARE.
[2023-08-08 05:31] LABS: Albumin, Blood 2.7 g/dL (3.4-5.0); Anion Gap 8 mmol/L (3-11); Blood Urea Nitrogen 7 mg/dL (8-24); Bun/Creatinine Ratio 9.5 (12.0-20.0); CO2, Blood 29 mmol/L (21-32); Calcium, Blood 8.8 mg/dL (8.5-10.1); Chloride, Blood 106 mmol/L (98-108); Creatinine, Blood 0.74 mg/dL (0.40-1.00); Glomerular Filtration Rate 86 (60-); Glucose, Blood 190 mg/dL (70-99); Magnesium, Blood 1.8 mg/dL (1.6-2.4); Phosphorus, Blood 2.3 mg/dL (2.5-4.9); Potassium, Blood 3.7 mmol/L (3.5-5.5); Sodium, Blood 139 mmol/L (136-145)
[2023-08-08 07:46] VITALS: BP 162/72
[2023-08-08] MEDS ORDERED: FAMO20 PO (11:26)
[2023-08-08] MEDS ORDERED: Norco 5-325 Ta1 EACH PO (11:27)
[2023-08-08] MEDS ORDERED: MULTIPLE VITAM1 EACH PO (11:28)
[2023-08-08] MEDS ORDERED: LEVSOD100 PO (11:29)
--- NOTE | 2023-08-08 13:35 | NUR ---
PT DISCHARGED TO [facility] AT 1300 VIA WHEELCHAIR TRANSPORT. IV REMOVED IN RFA W/O COMPLICATIONS. REPORT GIVEN TO RN AT [facility]. PT UPSET AT TIME OF DISCHARGE. PT BELIEVES 1-2 NORCO Q4 WILL NOT COVER PAIN DESPITE PCP RECOMMENDING ONLY TYLENOL FOR PAIN. DR. RUSSO ARRIVED TO PT ROOM TO EXPLAIN REASON TO NOT INCREASE PAIN MEDICATION. POLST COMPLETED AND SIGNED BY MD PRIOR TO D/C. HARD SCRIPT FOR NORCO SENT WITH DISCHARGE PACKET.
== END 2023-08-08 13:05 | DRG 183 ==
LOC: ER 08:37 → MEDS 08:38 → ENPENDDIS 08-08 10:48 → MEDS 08-08 13:05
PROVIDERS: Student in an Organized Health Care Education/Training Program; ADMIT Internal Medicine
DX: S22.42XA Multiple fractures of ribs, left side, initial encounter for closed fracture (principal); J18.9 Pneumonia, unspecified organism; E87.1 Hypo-osmolality and hyponatremia; E44.0 Moderate protein-calorie malnutrition; Z68.1 Body mass index [BMI] 19.9 or less, adult; F41.1 Generalized anxiety disorder; E78.00 Pure hypercholesterolemia, unspecified; E11.649 Type 2 diabetes mellitus with hypoglycemia without coma; E03.9 Hypothyroidism, unspecified; R29.6 Repeated falls; F17.210 Nicotine dependence, cigarettes, uncomplicated; Z66 Do not resuscitate; N18.30 Chronic kidney disease, stage 3 unspecified; I12.9 Hypertensive chronic kidney disease with stage 1 through stage 4 chronic kidney disease, or unspecified chronic kidney disease; E11.22 Type 2 diabetes mellitus with diabetic chronic kidney disease; Z90.710 Acquired absence of both cervix and uterus; Z90.49 Acquired absence of other specified parts of digestive tract; Z98.890 Other specified postprocedural states; Z90.12 Acquired absence of left breast and nipple; Z88.2 Allergy status to sulfonamides; Z88.8 Allergy status to other drugs, medicaments and biological substances; Z79.82 Long term (current) use of aspirin; Z79.4 Long term (current) use of insulin; Z79.890 Hormone replacement therapy; W18.30XA Fall on same level, unspecified, initial encounter
CPT/HCPCS: 36415; 70450; 71046; 80048; 80053; 80069; 82533; 82947; 83735; 84100; 84145; 84443; 85025; 85027; 93005; 93010; 96361; 96365; 96366; 96367; 96372; 96375; 96376; 97110; 97162; 97530; 99285-25; A9270; G0378; J0456; J0696; J1170; J1644; J1815; J1885; J2405; J3010; J7030; J7042; J7050; P9612

== ENCOUNTER 2023-10-12 02:37 | Day surgery (SDC) | payer OTHER ==
[~2023-10-12 02:37] MED LIST changes: +AMOCLA875 PO; +EUTHYROX50 MC1 PO; +FAMO20 PO; +FLUVOXAMINE MA100 M3 PO; +FOLI1 PO; +INSULIN AS100 UNIT/8 SC; +LEVSOD100 PO; +LOSA50 PO; +METO25ER PO; +MULTIPLE VITAM1 EACH PO; +Norco 5-325 Ta1 EACH PO; +PANT40 PO; +POTASSIUM CHLO20 MEQ PO; +REMERON30 M9 PO; +ROSUVASTATIN CA40 MG PO; +SYNTHROID75 MCG PO; +TOUJEO SOL300 UNIT/2 SC; +VISBIOME 112.51 EACH PO; +VITAMIN B-1100 M1 PO
[2023-10-12] MEDS ORDERED: Zoledronic Acid 4 MG in NS 100 ML IV SCH (06:00)
[2023-10-12 11:20] VITALS: BP 146/96
== END 2023-10-12 12:20 | disposition home or self-care (01) ==
LOC: ATC 02:37
DX: M81.0 Age-related osteoporosis without current pathological fracture (principal); E10.9 Type 1 diabetes mellitus without complications; E06.3 Autoimmune thyroiditis; F17.210 Nicotine dependence, cigarettes, uncomplicated; Z88.2 Allergy status to sulfonamides; Z88.1 Allergy status to other antibiotic agents; Z79.890 Hormone replacement therapy; Z79.899 Other long term (current) drug therapy
CPT/HCPCS: J3489

== ENCOUNTER 2024-01-31 10:45 | Emergency (ER) | payer OTHER ==
[~2024-01-31] VITALS: Ht 160 cm; Wt 54.4 kg
[2024-01-31 10:48] VITALS: BP 113/93
[2024-01-31] MEDS ORDERED: NS 1,000 ML IV SCH (10:55)
[2024-01-31 11:20] LABS: BASOPHILS ABSOLUTE AUTO 0.16 K/mm3 (0.00-0.23); BASOPHILS PERCENT AUTO 1 % (0-2); EOSINOPHILS ABSOLUTE AUTO 0.02 K/mm3 (0.00-0.68); EOSINOPHILS PERCENT AUTO 0 % (0-6); Hematocrit 33.1 % (33.0-51.0); Hemoglobin 8.8 g/dL (11.5-16.0); IMMATURE GRAN ABSOLUTE AUTO 1.03 K/mm3 (0.00-0.10); IMMATURE GRAN PERCENT AUTO 4 % (0-1); LYMPHOCYTES ABSOLUTE AUTO 2.79 K/mm3 (0.84-5.20); LYMPHOCYTES PERCENT AUTO 9 % (21-46); MONOCYTES ABSOLUTE AUTO 3.64 K/mm3 (0.16-1.47); MONOCYTES PERCENT AUTO 12 % (4-13); Mean Corpuscular HGB 21.4 pg (26.0-34.0); Mean Corpuscular HGB Conc 26.6 g/dL (31.5-36.5); Mean Corpuscular Volume 80 fL (80-100); Mean Platelet Volume 11.1 fL (9.1-12.4); NEUTROPHILS ABSOLUTE AUTO 22.12 K/mm3 (1.96-9.15); NEUTROPHILS PERCENT AUTO 74 % (41-73); NRBC ABSOLUTE 0.02 K/mm3 (0.00-0.02); NRBC Auto 0.1 /100 WBC (0.0-0.2); Platelet Count 299 K/mm3 (150-400); RDW Coefficient Variation 21.2 % (11.7-14.2); RDW Standard Deviation 61.8 fL (35.1-46.3); Red Blood Cell Count 4.12 M/mm3 (3.80-5.20); White Blood Cell Count 29.76 K/mm3 (4.00-11.30)
[2024-01-31 11:44] LABS: Magnesium, Blood 2.7 mg/dL (1.6-2.4)
[2024-01-31 12:05] LABS: Alanine Aminotransfer (ALT/SGP 16 U/L (12-78); Albumin, Blood 3.4 g/dL (3.4-5.0); Albumin/Globulin Ratio 0.9 (0.8-1.8); Alk Phos 102 U/L (50-136); Anion Gap 43 mmol/L (3-11); Aspartate Aminotrans (AST/SGOT 43 U/L (12-37); Bilirubin, Total 0.5 mg/dL (0.1-1.0); Blood Urea Nitrogen 92 mg/dL (8-24); Bun/Creatinine Ratio 26.6 (12.0-20.0); CO2, Blood 12 mmol/L (21-32); Calcium, Blood 9.8 mg/dL (8.5-10.1); Chloride, Blood 86 mmol/L (98-108); Creatinine, Blood 3.46 mg/dL (0.40-1.00); Globulin, Blood 3.6 g/dL (2.2-4.0); Glomerular Filtration Rate 14 (60-); Potassium, Blood 6.7 mmol/L (3.5-5.5); Sodium, Blood 134 mmol/L (136-145)
[2024-01-31 12:12] LABS: Glucose, Blood 1470 mg/dL (70-99)
[2024-01-31] MEDS ORDERED: Calcium Chloride 10% 100 MG/ML 10ML Vial IV ONE (15:09)
[2024-01-31] MEDS ORDERED: Sodium Bicarb 8.4% 50 mEq Syringe IV ONE (15:09)
[2024-01-31] MEDS ORDERED: EPINEPhrine HCl 0.1 MG/ML 10ML SYR IV ONE (15:09)
== END 2024-01-31 23:04 ==
LOC: ER 10:45
PROVIDERS: Emergency Medicine
DX: I46.9 Cardiac arrest, cause unspecified (principal); J96.90 Respiratory failure, unspecified, unspecified whether with hypoxia or hypercapnia; E87.5 Hyperkalemia; E11.9 Type 2 diabetes mellitus without complications; I10 Essential (primary) hypertension; E78.00 Pure hypercholesterolemia, unspecified; E07.9 Disorder of thyroid, unspecified; F17.210 Nicotine dependence, cigarettes, uncomplicated; Z88.2 Allergy status to sulfonamides; Z88.1 Allergy status to other antibiotic agents; Z79.4 Long term (current) use of insulin; Z79.82 Long term (current) use of aspirin; Z79.890 Hormone replacement therapy; Z79.899 Other long term (current) drug therapy
CPT/HCPCS: 31500; 80053; 82947; 83605; 83690; 83735; 83880; 84484; 85025; 93005; 93010; 99291-25